=== PATIENT | male | born 1960 | race Caucasian/White ===

== ENCOUNTER → 2016-07-28 | Outpatient (CLI) | payer MEDICAID ==
--- NOTE | 2016-07-28 17:23 | DX ---
Left Hand, 3 Views History: Follow up fractures. M79.642. Pain. Comparison: None available. Findings: Oblique fracture of the left fourth metacarpal neck with volar angulation and displacement demonstrating no definite callus formation. There is approximately 40 degrees of volar angulation on the lateral view. Additional oblique fracture of the left fifth metacarpal neck with volar angulation of indeterminate age. This may represent an old healed fracture. Please clinically correlate. Displa pat old ulnar styloid fracture noted. Left second finger proximal phalanx oblique intra-articular cor ner fracture fragment approximately 5 mm in size extending into the second metacarpophalangeal joint without definite callus formation. No displacement. Impression: 1. Left second proximal phalanx base oblique intra-articular nondisplaced fracture without definite c allus formation. 2. Probable old left fifth metacarpal neck fracture with volar angulation. 3. Possible subacute oblique left fourth metacarpal neck fracture. 4. Old ulnar styloid fracture. 5. No prior studies for comparison.
--- NOTE | 2016-07-28 17:23 | DX ---
Lumbar spine AP and lateral with obliques 4 views 1616 hours. History: Low back pain with radiculopathy. The patient reports a fall 2-3 weeks ago. A truck not the patient down. Findings: There is partial sacralization of the L5 segment with a rudimentary L5-S1 disk. Mild to mod erate disk space narrowing is also noted at L4-L5. There is abnormal articulation suspected involving the left L4-L5 facet with sclerosis. It is difficult to rule out a possible fracture involving the s uperior articulating facet at L5 with L4 on the left. The remainder the facet joints appear to be nor mal. There is associated dextroscoliosis of the lower lumbar spine that could be related to the abnor mal articulation or fracture of the left L4-L5 facet region. Impression: 1. Partial sacralization of L5 segment. 2. Possible abnormal articulation at the left L4-L5 facet. However, the possibility of underlying fra cture related to recent trauma may also be considered. If indicated, consider CT of the lumbar spine as clinically directed. 3. 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 These findings were discussed by telephone with Addie Chambers at 1715 hours.
== END ==
LOC: BRMIMAGING 15:52
PROVIDERS: ATTEND Registered Nurse
DX: Q76.49 Other congenital malformations of spine, not associated with scoliosis (principal); M41.86 Other forms of scoliosis, lumbar region; S62.611A Displaced fracture of proximal phalanx of left index finger, initial encounter for closed fracture
CPT/HCPCS: 72100-PO; 73130-PO